=== PATIENT | female | born 1950 | race Two or more races ===

== ENCOUNTER 2017-09-10 10:30 | Inpatient (IN) | payer OTHER ==
[~2017-09-10] VITALS: Ht 157.5 cm; Wt 46.3 kg
[2017-09-10] MEDS ORDERED: ZANTAC300 MG PO (11:45)
[2017-09-10] MEDS ORDERED: PRILOSEC OTC20 MG PO (11:45)
[2017-09-10] MEDS ORDERED: ASOPT (11:46)
[2017-09-18] MEDS ORDERED: DOCUSATE SODIU100 MG PO (11:07)
[2017-09-18] MEDS ORDERED: PERCOCET 5-3251 EACH PO (11:09)
[2017-09-18] MEDS ORDERED: CLONAZEPAM1 MG PO (11:09)
== END 2017-09-18 12:52 | disposition home or self-care (01) | DRG 454 ==
LOC: O/R 09-17 04:15 → PED 09-17 04:15 → SURH 09-17 10:00 → PED 09-17 11:24
PROVIDERS: Orthopaedic Surgery Orthopaedic Surgery of the Spine
PROC: 0RG2071 Fusion of 2 or more Cervical Vertebral Joints with Autologous Tissue Substitute, Posterior Approach, Posterior Column, Open Approach (ICD-10-PCS; 2017-09-17)
PROC: 0RT30ZZ Resection of Cervical Vertebral Disc, Open Approach (ICD-10-PCS; 2017-09-17)
PROC: 07DS3ZZ Extraction of Vertebral Bone Marrow, Percutaneous Approach (ICD-10-PCS; 2017-09-17)
PROC: 0RG20A0 Fusion of 2 or more Cervical Vertebral Joints with Interbody Fusion Device, Anterior Approach, Anterior Column, Open Approach (ICD-10-PCS; principal; 2017-09-17 10:00)
DX: M50.01 Cervical disc disorder with myelopathy, high cervical region (principal); M47.12 Other spondylosis with myelopathy, cervical region

== ENCOUNTER 2021-05-24 09:14 | Outpatient (CLI) | payer OTHER ==
[~2021-05-24 09:14] MED LIST: ASOPT; CLONAZEPAM1 MG PO; DOCUSATE SODIU100 MG PO; PERCOCET 5-3251 EACH PO; PRILOSEC OTC20 MG PO; ZANTAC300 MG PO
== END 2021-05-24 09:24 | disposition home or self-care (01) ==
LOC: RX STUDY 09:14
PROVIDERS: ATTEND Internal Medicine
DX: R63.4 Abnormal weight loss (principal); R10.13 Epigastric pain